=== PATIENT | male | born 1995 | race Caucasian/White ===

== ENCOUNTER 2018-03-05 19:27 | Inpatient (IN) ==
--- NOTE | 2018-03-05 19:53 | Emergency Department Note ---
Disposition Clinical Impression: Depression Qualifiers: Depression Type: unspecified Qualified Code(s): F32.9 - Major depressive disorder, single episode, unspecified Disposition: Still a Patient Condition: Good Referrals: NONE,PCP [Primary Care Provider] - Forms: ED Satisfaction Letter Psych HPI - General Chief Complaint: ED Psychiatric Symptoms Stated Complaint: "SI/Hearing Voices" Time Seen by Provider: 03/05/18 19:45 Source: patient Mode of arrival: ambulatory Limitations: no limitations Nursing Notes Reviewed: Yes Vital Signs Reviewed: Yes - History of Present Illness HPI Narrative: 22-year-old with schizoaffective disorder versus medications not working. He is hearing voices that are very loud and he wanted to try to get help before he deteriorates into started to hurt people. 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 Duration: constant History of similar episodes: Yes Improves with: none Worsens with: none Associated Psychiatric Symptoms: other Associated symptoms: Reports: denies other symptoms Traumatic symptoms: denies traumatic injury Treatments prior to arrival: none Self harm or harm to others: admits thoughts of harming others - Related Data Home Medications Medication Instructions Recorded Confirmed Levothyroxine [Synthroid] 50 mcg PO 0630 01/16/18 01/16/18 [place] Carbonate 300 mg PO BID 01/16/18 01/16/18 Paliperidone Palmitate [Invega 234 mg IM QMONTH 01/16/18 01/16/18 Sustenna] RisperiDONE [Risperdal] 0.5 mg PO BID 01/16/18 01/16/18 Previous Rx's Medication Instructions Recorded Ondansetron ODT [Zofran ODT] 4 mg SL Q6HR PRN #20 tab.rapdis 01/31/18 Allergies Allergy/AdvReac Type Severity Reaction Status Date / Time aripiprazole [From Abilify] AdvReac See Verified 04/03/17 17:15 Comments Bethanidine AdvReac See Verified 04/03/17 17:15 Comments divalproex sodium AdvReac See Verified 04/03/17 17:15 [From Depakote] Comments ziprasidone [From Geodon] AdvReac See Verified 04/03/17 17:15 Comments All systems ED: reviewed and negative except as stated. Constitutional: Denies: fever, chills, weakness, weight change Eyes: Denies: eye pain, eye discharge, vision change ENT ED: Denies: ear pain, throat pain, dental pain, hearing loss, epistaxis, congestion, dysphagia Cardiovascular: Denies: chest pain, palpitations, dyspnea on exertion, edema, syncope Respiratory: Denies: cough, dyspnea, wheezes, hemoptysis, stridor Gastrointestinal: Denies: abdominal pain, nausea, vomiting, diarrhea, constipation, hematemesis, melena, hematochezia Genitourinary: Denies: urgency, dysuria, frequency, hematuria Musculoskeletal: Denies: back pain, neck pain, arthralgia, myalgia Integumentary: Denies: rash, abrasion, lesions Neurological: Denies: headache, weakness, numbness, paresthesias, confusion, abnormal gait, vertigo Psychiatric: Reports: auditory hallucinations. Denies: anxiety, depression, suicidal thoughts, homicidal thoughts, visual hallucinations Endocrine: Denies: fatigue Hematological/Lymphatic: Denies: easy bleeding, easy bruising Allergic/Immunologic: Denies: facial swelling, urticaria Past Medical History - Past Medical History Medical history: Reports: thyroid disease, other Psychiatric history: Reports: anxiety, bipolar, depression, prior suicide attempt, schizophrenia, previous psychiatric hospitalization - Social History Smoking Status: Never smoker Smokeless Tobacco Status: No Alcohol use: Reports: none Drug use: Reports: none Physical Exam - General Limitations: no limitations General appearance: alert - Head Head exam: atraumatic, normocephalic, normal inspection - Eye Eye exam: Present: normal appearance, PERRL, EOMI - ENT ENT exam: normal exam, normal oropharynx, mucous membranes moist - Neck Neck exam: Present: normal inspection, full ROM, trachea midline - Chest Chest inspection: Present: normal inspection, symmetric chest wall rise - Respiratory Respiratory exam: Present: normal lung sounds bilaterally - Cardiovascular Cardiovascular exam: Present: regular rate, normal rhythm, normal heart sounds - Abdominal Exam Abdominal exam: Present: soft, Non-Tender. Absent: tenderness, distention, guarding, rebound, rigidity - Extremities Exam Extremities exam: Present: normal inspection, full ROM. Absent: tenderness, pedal edema - Expanded Lower Extremity Exam Neurovascular/Tendon exam: Present: normal capillary refill - Back Exam Back exam: Present: normal inspection, full ROM. Absent: tenderness - Neurological Exam Neurological exam: Present: alert, oriented X3 - Psychiatric Psychiatric exam: Present: normal affect, agitated - Skin Skin exam: Present: warm, dry, intact, normal color Course Vital Signs Temperature 98.5 F 03/05/18 19:30 Pulse Rate 95 03/05/18 19:30 Respiratory Rate 20 03/05/18 19:30 Blood Pressure 157/92 03/05/18 19:30 O2 Sat by Pulse Oximetry 94 03/05/18 19:30 Temperature 98.5 F 03/05/18 19:30 Pulse Rate 95 03/05/18 19:30 Respiratory Rate 20 03/05/18 19:30 Blood Pressure 157/92 03/05/18 19:30 O2 Sat by Pulse Oximetry 94 03/05/18 19:30 Oxygen Delivery Oxygen Delivery Room Air Psych - Lab Data Result diagrams: 03/05/18 19:44 03/05/18 19:44 Lab Results 03/05/18 03/05/18 03/05/18 Range/Units 19:44 19:44 19:49 WBC 6.4 (4.3-11.1) K/mcL RBC 4.87 (4.19-5.50) M/mcL Hgb 16.0 (12.9-16.9) g/dL Hct 43.4 (37.5-50.1) % MCV 89.1 (83.0-100.0) fL MCH 32.9 (28.0-33.3) pg MCHC 36.9 H (31.6-35.5) g/dL RDW 11.9 (11.5-14.5) % Plt Count 220 (140-400) K/mcL MPV 9.2 L (9.4-12.4) fL Immature Gran % 0.3 (0-4) % Seg Neutrophils % 56.5 % Lymphocytes % 28.1 % Monocytes % 7.8 % Eosinophils % 6.0 % Basophils % 1.3 % Neutrophils # 3.6 (1.6-8.9) K/mcL Lymphocytes # 1.8 (0.6-4.6) K/mcL Monocytes # 0.5 (0.0-1.3) K/mcL Eosinophils # 0.4 (0.0-0.6) K/mcL Basophils # 0.1 (0.0-0.2) K/mcL Sodium 140 (136-145) mEq/L Potassium 3.9 (3.5-5.1) mEq/L Chloride 108 H (98-107) mEq/L Carbon Dioxide 24 (23-29) mEq/L BUN 10 (6-20) mg/dL Creatinine 0.87 (0.70-1.30) mg/dL Est GFR ( Amer) > 60 (> 60) Est GFR (Non-Af Amer) > 60 (> 60) BUN/Creatinine Ratio 11 (6-26) Glucose 98 (70-105) mg/dL Calculated Osmolality 289 (280-300) Calcium 10.1 (8.6-10.3) mg/dL Urine Color Yellow (Yellow) Urine Clarity Clear (Clear) Urine pH 6.0 (5.0-8.0) pH Units Ur Specific [place] 1.022 (1.010-1.025) Urine Protein Negative (Neg-Trace) mg/dL Urine Glucose (UA) Normal (Normal) mg/dL Urine Ketones Negative (Negative) mg/dL Urine Blood Negative (Negative) Urine Nitrite Negative (Negative) Urine Bilirubin Negative (Negative) Urine Urobilinogen Normal (Normal) mg/dL Ur Leukocyte Esterase Negative (Negative) Salicylates < 2.5 L (15.0-30.0) mg/dL Urine Opiates Screen (Lnyjhr=109) ng/mL Acetaminophen < 10 L (10-20) mcg/mL Ur Barbiturates Screen (Jizpna=080) ng/mL Ur Phencyclidine Scrn (Cutoff=25) ng/mL Ur Amphetamines Screen (Krcmnn=7317) ng/mL U Benzodiazepines Scrn (Txzthv=425) ng/mL Urine Cocaine Screen (Cutoff= 300) ng/mL U Marijuana (THC) Screen (Cutoff = 50) ng/mL Ethyl Alcohol < 10 (Less than 10) mg/dL 03/05/18 Range/Units 19:49 WBC (4.3-11.1) K/mcL RBC (4.19-5.50) M/mcL Hgb (12.9-16.9) g/dL Hct (37.5-50.1) % MCV (83.0-100.0) fL MCH (28.0-33.3) pg MCHC (31.6-35.5) g/dL RDW (11.5-14.5) % Plt Count (140-400) K/mcL MPV (9.4-12.4) fL Immature Gran % (0-4) % Seg Neutrophils % % Lymphocytes % % Monocytes % % Eosinophils % % Basophils % % Neutrophils # (1.6-8.9) K/mcL Lymphocytes # (0.6-4.6) K/mcL Monocytes # (0.0-1.3) K/mcL Eosinophils # (0.0-0.6) K/mcL Basophils # (0.0-0.2) K/mcL Sodium (136-145) mEq/L Potassium (3.5-5.1) mEq/L Chloride (98-107) mEq/L Carbon Dioxide (23-29) mEq/L BUN (6-20) mg/dL Creatinine (0.70-1.30) mg/dL Est GFR ( Amer) (> 60) Est GFR (Non-Af Amer) (> 60) BUN/Creatinine Ratio (6-26) Glucose (70-105) mg/dL Calculated Osmolality (280-300) Calcium (8.6-10.3) mg/dL Urine Color (Yellow) Urine Clarity (Clear) Urine pH (5.0-8.0) pH Units Ur Specific [place] (1.010-1.025) Urine Protein (Neg-Trace) mg/dL Urine Glucose (UA) (Normal) mg/dL Urine Ketones (Negative) mg/dL Urine Blood (Negative) Urine Nitrite (Negative) Urine Bilirubin (Negative) Urine Urobilinogen (Normal) mg/dL Ur Leukocyte Esterase (Negative) Salicylates (15.0-30.0) mg/dL Urine Opiates Screen Negative (Lnuuzf=366) ng/mL Acetaminophen (10-20) mcg/mL Ur Barbiturates Screen Negative (Vhvpop=358) ng/mL Ur Phencyclidine Scrn Negative (Cutoff=25) ng/mL Ur Amphetamines Screen Negative (Tomuol=4892) ng/mL U Benzodiazepines Scrn Negative (Vssmet=840) ng/mL Urine Cocaine Screen Negative (Cutoff= 300) ng/mL U Marijuana (THC) Screen Negative (Cutoff = 50) ng/mL Ethyl Alcohol (Less than 10) mg/dL Psychiatric Medical Clearance - Medical Clearance Checklist Medical History: No Social History Section defined Current Vitals: Last Vital Signs Temp 98.5 F 03/05/18 19:30 Pulse 95 03/05/18 19:30 Resp 20 03/05/18 19:30 BP 157/92 03/05/18 19:30 Pulse Ox 94 03/05/18 19:30 Psychiatric Lab Panel: Drug Levels and Toxicity 03/05/18 03/05/18 19:44 19:49 Urine Opiates Screen Negative Acetaminophen < 10 L Ur Barbiturates Screen Negative Ur Phencyclidine Scrn Negative Ur Amphetamines Screen Negative U Benzodiazepines Scrn Negative Urine Cocaine Screen Negative U Marijuana (THC) Screen Negative Ethyl Alcohol < 10 Abnormal Labs: Abnormal lab results MCHC 36.9 g/dL (31.6-35.5) H 03/05/18 19:44 MPV 9.2 fL (9.4-12.4) L 03/05/18 19:44 Chloride 108 mEq/L (98-107) H 03/05/18 19:44 Salicylates < 2.5 mg/dL (15.0-30.0) L 03/05/18 19:44 Acetaminophen < 10 mcg/mL (10-20) L 03/05/18 19:44 Statement of Medical Clearance: I have evaluated the patient, reviewed diagnostic information, and certify that the patient's medical condition is sufficiently stable that transfer to the psychiatric unit does not pose a significant risk of deterioration. S.B.A.R. - S.B.A.R. Recommendation: Recommendation based on pending studies, treatments, or consults S.B.A.R. Report Given to: Dr. Keith Fisher
[2018-03-05 19:57] LABS: Basophils # 0.1 K/mcL (0.0-0.2); Basophils % 1.3 %; Eosinophils # 0.4 K/mcL (0.0-0.6); Hematocrit 43.4 % (37.5-50.1); Immature Granulocytes % 0.3 % (0-4); Lymphocytes # 1.8 K/mcL (0.6-4.6); Lymphocytes % 28.1 %; Mean Corpuscular HGB Conc 36.9 g/dL (31.6-35.5); Mean Corpuscular Hemoglobin 32.9 pg (28.0-33.3); Mean Corpuscular Volume 89.1 fL (83.0-100.0); Mean Platelet Volume 9.2 fL (9.4-12.4); Monocytes # 0.5 K/mcL (0.0-1.3); Monocytes % 7.8 %; Neutrophils # 3.6 K/mcL (1.6-8.9); Platelet Count 220 K/mcL (140-400); Red Blood Count 4.87 M/mcL (4.19-5.50); Red Cell Distribution Width 11.9 % (11.5-14.5); Segmented Neutrophils % 56.5 %
[2018-03-05 20:03] LABS: Bilirubin,Urine Negative (Negative); Blood,Urine Negative (Negative); Clarity,Urine Clear (Clear); Color,Urine Yellow (Yellow); Glucose,Urine (UA) Normal (Normal); Ketones,Urine Negative (Negative); Leukocyte Esterase,Urine Negative (Negative); Nitrite,Urine Negative (Negative); Protein,Urine Negative (Neg-Trace); Specific Gravity,Urine 1.022 (1.010-1.025); Urobilinogen,Urine Normal (Normal)
[2018-03-05 20:12] LABS: Amphetamine Screen,Urine Negative ng/mL (Cutoff=1000); Barbiturate Screen,Urine Negative ng/mL (Cutoff=200); Benzodiazepines Screen,Urine Negative ng/mL (Cutoff=200); Cannabinoid Screen,Urine Negative ng/mL (Cutoff = 50); Cocaine Screen,Urine Negative ng/mL (Cutoff= 300); Opiate Screen,Urine Negative ng/mL (Cutoff=300); Phencyclidine Screen,Urine Negative ng/mL (Cutoff=25)
[2018-03-05 20:25] LABS: Acetaminophen < 10 mcg/mL (10-20); BUN/Creatinine Ratio 11 (6-26); Blood Urea Nitrogen 10 mg/dL (6-20); Calcium 10.1 mg/dL (8.6-10.3); Carbon Dioxide 24 mEq/L (23-29); Chloride 108 mEq/L (98-107); Ethanol < 10 mg/dL (Less than 10); Glucose 98 mg/dL (70-105); Osmolality,Calculated 289 (280-300); Potassium 3.9 mEq/L (3.5-5.1); Salicylate < 2.5 mg/dL (15.0-30.0); Sodium 140 mEq/L (136-145); eGFR For African Americans > 60 (> 60); eGFR For Non-African Americans > 60 (> 60)
[2018-03-06] MEDS ORDERED: *HR* LORazepam 2 MG/ML VIAL IM ONE (00:04)
[2018-03-06] MEDS ORDERED: Haloperidol Lactate 5 MG/ML VIAL IM ONE (00:04)
[2018-03-06] MEDS ORDERED: MOM Conc 10 ML UD.LIQ PO PRN (01:32)
[2018-03-06] MEDS ORDERED: Ibuprofen 400 MG TABLET PO PRN (01:32)
[2018-03-06] MEDS ORDERED: *HR* LORazepam 2 MG/ML VIAL IM PRN (01:32)
[2018-03-06] MEDS ORDERED: Haloperidol Lactate 5 MG/ML VIAL IM PRN (01:32)
[2018-03-06] MEDS ORDERED: *HR* LORazepam 1 MG TABLET PO PRN (01:32)
--- NOTE | 2018-03-06 11:21 | Psychiatry History & Physical ---
Date of Encounter: 03/06/18 Time of Encounter: 10:45 History of Present Illness Patient Stated Chief Complaint: "Im suicidal and hearing voices" Medicare Admission Attestation: For traditional Medicare patients the provided hospital inpatient services are reasonable and necessary and in the case of services not specified as inpatient -only under 42 CFR 419.22 (n), that they are appropriately provided as inpatient services in accordance 42 CFR 412.3. For Critical Access Hospital the patient may reasonably be expected to be discharged or transferred to a hospital within 96 hours after admission to the Critical Access Hospital. Plans for Post Hospital Care: Transfer Psych Facility History of Present Illness: Mr. Flores is a 22 year old male, singlel. lives with mom and siblings, with a h/o schizophrenia, bipolar disorder, multiple inpatient hospitalizations including state hospitalization at [facility], denied h/o illicit drug use, self reported h/o violence, denied h/o incarceration, medical h/o celiac disease and IBS self presented to the ED on account of SI and coomand . Patient was admitted to after medical clearance for inpatient stabilization. He was medicated with IM Haldol 5mg Ativan 2mg and Benadryl 50mg at the ED with good effect. Patient slept through the night after his admission to the unit with no reported behavioral issues or incident. He was seen this morning in the office and was noted to a little restless and talkative. He stated he self admitted himself to the hospital because his thoughts were beginning to be foggy and did not want to get out of control. He is on Invega sustenna 234mg and his last shot was at the beginning of the month. Patient is unable to recall the exact date. He also was started on lithium a couple of months back. Patient denied ongoing stressors and recent illicit drug use. He is currently endorsing racing thoughts and intermittent command AH asking him to harm self and others. He rated his depression and anxiety 6/10. He takes Doxepin at bedtime and helps with sleep. Past Med Surg Social Fam HX - Past Medical History Medical history: thyroid disease, other - Past Psychiatric History Psychiatric history: Reports: anxiety, bipolar, schizophrenia, previous psychiatric hospitalization - Social History Smoking Status: Never smoker Smokeless Tobacco Status: No Alcohol use: none Drug use: none Medications & Allergies Levothyroxine [Synthroid] 50 mcg PO 0630 01/16/18 [History] [place] Carbonate 300 mg PO BID 01/16/18 [History] Paliperidone Palmitate [Invega Sustenna] 234 mg IM QMONTH 01/16/18 [History] Benztropine [Cogentin] 1 mg PO BID 03/05/18 [History] Doxepin [Sinequan] 25 mg PO HS 03/05/18 [History] risperiDONE [RisperDAL] 1 mg PO HS 03/05/18 [History] 3 Allergy/AdvReac Type Severity Reaction Status Date / Time aripiprazole [From Abilify] AdvReac See Verified 04/03/17 17:15 Comments Bethanidine AdvReac See Verified 04/03/17 17:15 Comments divalproex sodium AdvReac See Verified 04/03/17 17:15 [From Depakote] Comments ziprasidone [From Geodon] AdvReac See Verified 04/03/17 17:15 Comments Review of Systems Constitutional: Denies: fever, chills, weakness, weight change Eyes: Denies: eye pain, vision change Ears, Nose, Throat: Denies: ear pain, throat pain, dental pain, hearing loss, congestion Cardiovascular: Denies: chest pain, palpitations, dyspnea on exertion Respiratory: Denies: cough, dyspnea, wheezes Gastrointestinal: Denies: abdominal pain, nausea, vomiting, diarrhea, constipation Genitourinary male: Denies: urgency, dysuria, frequency, genital lesions Musculoskeletal: Denies: joint swelling, joint pain Integumentary: Denies: rash, lesions, pruritus Neurological: Denies: headache, weakness, numbness, memory loss Psychiatric: Reports: depression, anxiety, auditory hallucinations Endocrine: Denies: fatigue, heat or cold intolerance Hematologic/Lymphatic: Denies: easy bruising, lymphadenopathy Allergic/Immunologic: Denies: urticaria, itchy eyes Exam - HEENT Head exam IM: Present: atraumatic Eye exam IM: Present: EOMI, normal appearance, PERRL ENT exam IM: Present: normal exam - Neurological Neurological exam: Present: CN II-XII intact - Respiratory Respiratory exam IM: Present: CTAB - GI/Abdominal GI/Abdominal exam IM: Present: normal bowel sounds, soft. Absent: tenderness - Extremities Extremities exam IM: Present: full ROM - Skin Skin exam IM: Present: dry, warm - Constitutional Vitals: Temp Pulse Resp BP Pulse Ox 97.3 F L 77 19 118/81 94 03/06/18 09:00 03/06/18 09:00 03/06/18 09:00 03/06/18 09:00 03/05/18 19:30 General appearance: age & developmentally appropriate, well-groomed, well- nourished - Musculoskeletal Gait: normal Station: relaxed Strength & Tone: normal for patient - Psychiatric Patient Orientation: Yes Person, Yes Place, Yes Circumstance Level of alertness: Alert, Follows commands Behavior: restless, distractible Psychomotor activity: Increased Eye Contact: Maintains Eye Contact Mood Description: Depressed Affect description: full range Speech Volume: Normal Speech pattern: normal rate, normal rhythm, normal tone, fluent, spontaneous Language & Vocabulary: consistent with education Thought Process: Logical, Linear, Goal Oriented Thought Content: Yes Suicidal ideation Perceptual Disturbances: Yes Auditory hallucinations Attention Span Ability: Capable of Sustained Attention Patient Reliability: Reliable Historian Fund of knowledge: Yes average Intelligence Estimate: Average Judgment: Poor Insight: Minimal Results - Labs Labs: Laboratory Last Values WBC 6.4 K/mcL (4.3-11.1) 03/05/18 19:44 RBC 4.87 M/mcL (4.19-5.50) 03/05/18 19:44 Hgb 16.0 g/dL (12.9-16.9) 03/05/18 19:44 Hct 43.4 % (37.5-50.1) 03/05/18 19:44 MCV 89.1 fL (83.0-100.0) 03/05/18 19:44 MCH 32.9 pg (28.0-33.3) 03/05/18 19:44 MCHC 36.9 g/dL (31.6-35.5) H 03/05/18 19:44 RDW 11.9 % (11.5-14.5) 03/05/18 19:44 Plt Count 220 K/mcL (140-400) 03/05/18 19:44 MPV 9.2 fL (9.4-12.4) L 03/05/18 19:44 Immature Gran % 0.3 % (0-4) 03/05/18 19:44 Seg Neutrophils % 56.5 % 03/05/18 19:44 Lymphocytes % 28.1 % 03/05/18 19:44 Monocytes % 7.8 % 03/05/18 19:44 Eosinophils % 6.0 % 03/05/18 19:44 Basophils % 1.3 % 03/05/18 19:44 Neutrophils # 3.6 K/mcL (1.6-8.9) 03/05/18 19:44 Lymphocytes # 1.8 K/mcL (0.6-4.6) 03/05/18 19:44 Monocytes # 0.5 K/mcL (0.0-1.3) 03/05/18 19:44 Eosinophils # 0.4 K/mcL (0.0-0.6) 03/05/18 19:44 Basophils # 0.1 K/mcL (0.0-0.2) 03/05/18 19:44 Sodium 140 mEq/L (136-145) 03/05/18 19:44 Potassium 3.9 mEq/L (3.5-5.1) 03/05/18 19:44 Chloride 108 mEq/L (98-107) H 03/05/18 19:44 Carbon Dioxide 24 mEq/L (23-29) 03/05/18 19:44 BUN 10 mg/dL (6-20) 03/05/18 19:44 Creatinine 0.87 mg/dL (0.70-1.30) 03/05/18 19:44 Est GFR ( Amer) > 60 (> 60) 03/05/18 19:44 Est GFR (Non-Af Amer) > 60 (> 60) 03/05/18 19:44 BUN/Creatinine Ratio 11 (6-26) 03/05/18 19:44 Glucose 98 mg/dL (70-105) 03/05/18 19:44 Calculated Osmolality 289 (280-300) 03/05/18 19:44 Calcium 10.1 mg/dL (8.6-10.3) 03/05/18 19:44 Urine Color Yellow (Yellow) 03/05/18 19:49 Urine Clarity Clear (Clear) 03/05/18 19:49 Urine pH 6.0 pH Units (5.0-8.0) 03/05/18 19:49 Ur Specific [place] 1.022 (1.010-1.025) 03/05/18 19:49 Urine Protein Negative mg/dL (Neg-Trace) 03/05/18 19:49 Urine Glucose (UA) Normal mg/dL (Normal) 18 19:49 Urine Ketones Negative mg/dL (Negative) 03/05/18 19:49 Urine Blood Negative (Negative) 18 19:49 Urine Nitrite Negative (Negative) 18 19:49 Urine Bilirubin Negative (Negative) 03/05/18 19:49 Urine Urobilinogen Normal mg/dL (Normal) 03/05/18 19:49 Ur Leukocyte Esterase Negative (Negative) 03/05/18 19:49 Salicylates < 2.5 mg/dL (15.0-30.0) L 03/05/18 19:44 Urine Opiates Screen Negative ng/mL (Wumbxu=000) 03/05/18 19:49 Acetaminophen < 10 mcg/mL (10-20) L 03/05/18 19:44 Ur Barbiturates Screen Negative ng/mL (Ocmjbh=463) 03/05/18 19:49 Ur Phencyclidine Scrn Negative ng/mL (Cutoff=25) 03/05/18 19:49 Ur Amphetamines Screen Negative ng/mL (Velill=9524) 03/05/18 19:49 U Benzodiazepines Scrn Negative ng/mL (Qszlra=716) 03/05/18 19:49 Embden 0.3 mEq/L (0.6-1.2) L 03/05/18 19:44 Urine Cocaine Screen Negative ng/mL (Cutoff= 300) 03/05/18 19:49 U Marijuana (THC) Screen Negative ng/mL (Cutoff = 50) 03/05/18 19:49 Ethyl Alcohol < 10 mg/dL (Less than 10) 03/05/18 19:44 Assessment and Plan (1) Schizophrenia Current visit: Yes Status: Acute Plan: Admit inpatient for safety and stabilization, Close observation, Suicide Precautions per unit protocol, Encourage participation in unit milieu, Group Therapy, Monitor sleep, Monitor appetite Qualifiers: Schizophrenia type: undifferentiated schizophrenia Qualified Code(s): F20.3 - Undifferentiated schizophrenia (2) Bipolar 1 disorder Current visit: Yes Status: Acute Plan: Admit inpatient for safety and stabilization, Close observation, Encourage participation in unit milieu, Family/Supportive other meeting Risks , benefits, side effects, alternatives discussed w/pt: Yes Patient agreeable to treatment: Yes
[2018-03-06 12:42] LABS: Albumin 4.9 g/dL (3.5-5.7); Albumin/Globulin Ratio 2.2 (1.1-2.2); Bilirubin,Direct 0.3 mg/dL (0.0-0.2); Bilirubin,Indirect 1.4 mg/dL (0.0-1.2); Bilirubin,Total 1.7 mg/dL (0.3-1.0); Globulin 2.2 g/dL (2.4-3.5); Total Protein 7.1 g/dL (6.4-8.9)
[2018-03-06] MEDS: Lithium Carbonate 300 MG CAPSULE PO SCH ×2 (15:33→21:17)
[2018-03-06] MEDS ORDERED: risperiDONE 1 MG TABLET PO SCH (21:00)
[2018-03-06] MEDS: hydrOXYzine pamoate 25 MG CAPSULE PO PRN (22:57)
[2018-03-06] MEDS: traZODone 50 MG TABLET PO PRN (23:36)
[2018-03-07] MEDS: Lithium Carbonate 300 MG CAPSULE PO SCH ×3 (08:53→21:21)
--- NOTE | 2018-03-07 12:42 | Psychiatry Progress Note ---
Date of Encounter: 03/07/18 Time of Encounter: 10:30 Subjective Interval history: Identifying Data: Mr. Flores is a 22 year old male, singlel. lives with mom and siblings, with a h/o schizophrenia, bipolar disorder, multiple inpatient hospitalizations including state hospitalization at [facility], denied h/o illicit drug use, self reported h/o violence, denied h/o incarceration, medical h/o celiac disease and IBS self presented to the ED on account of SI and command AH. Patient was admitted to after medical clearance for inpatient stabilization. Interval Hx: There were no reported behavioral issues or incident overnight. Patient discussed on rounds by a multidisciplinary treatment team. He was seen this morning in the office. Patient is still restless and talkative with sightly pressures speech. He is still endorsing intermittent command AH most recent early this morning asking to wake up. Review of hepatic panel showed elevated AST:68, ALT: 85 and Total Bilirubin. I plan to switch Respidal with Invega p.o. He is compliant with his medications and denied any side effects. He reported difficulty sleeping last night because he did not receive his doxepin and finally went to sleep after taking both Trazodone and Vistaril. On review of symptoms, patient denied other mood and psychotic symptoms including VH/SI/HI Review of Systems Constitutional: Denies: fever, chills, weakness, weight change Eyes: Denies: eye pain, vision change Ears, Nose, Throat: Denies: ear pain, throat pain, dental pain, hearing loss, congestion Cardiovascular: Denies: chest pain, palpitations, dyspnea on exertion Respiratory: Denies: cough, dyspnea, wheezes Gastrointestinal: Denies: abdominal pain, nausea, vomiting, diarrhea, constipation Musculoskeletal: Denies: joint swelling, joint pain Neurological: Denies: headache, weakness, numbness, memory loss Psychiatric: Reports: depression, anxiety, auditory hallucinations Results - Vital Signs Vital Signs: Temp Pulse Resp BP Pulse Ox 97.7 F 84 16 123/79 94 03/06/18 20:19 03/07/18 08:26 03/07/18 08:26 03/07/18 08:26 03/05/18 19:30 - Labs Labs: Laboratory Results - last 24 hr 03/06/18 11:39 Total Bilirubin 1.7 H Direct Bilirubin 0.3 H Indirect Bilirubin 1.4 H AST 68 H ALT 85 H Alkaline Phosphatase 82 Serum Total Protein 7.1 Albumin 4.9 Globulin 2.2 L Albumin/Globulin Ratio 2.2 Assessment and Plan (1) Schizophrenia Current visit: Yes Status: Acute Qualifiers: Schizophrenia type: undifferentiated schizophrenia Qualified Code(s): F20.3 - Undifferentiated schizophrenia (2) Bipolar 1 disorder Current visit: Yes Status: Acute Risks, benefits, side effects, alternatives discussed w/pt: Yes Patient agreeable to treatment: Yes (3) Anxiety Current visit: Yes Status: Acute Plan: Continue hospitalization, Group Therapy Consult Discharge Plan - Plan Referrals: NONE,PCP [Primary Care Provider] - Psychiatry Exam - Constitutional Vitals: Temp Pulse Resp BP Pulse Ox 97.7 F 84 16 123/79 94 03/06/18 20:19 03/07/18 08:26 03/07/18 08:26 03/07/18 08:26 03/05/18 19:30 General appearance: age & developmentally appropriate, well-groomed, well- nourished - Musculoskeletal Gait: normal Station: relaxed Strength & Tone: normal for patient - Psychiatric Patient Orientation: Yes Person, Yes Time, Yes Place, Yes Circumstance Level of alertness: Alert Behavior: cooperative, restless Psychomotor activity: Normal Eye Contact: Maintains Eye Contact Mood Description: Elevated Affect description: congruent with mood Speech Volume: Normal Speech pattern: pressured Language & Vocabulary: consistent with education Thought Process: Linear, Goal Oriented Thought Content: No Suicidal ideation, No Homicidal ideation, No Overt delusions Perceptual Disturbances: Yes Auditory hallucinations Attention Span Ability: Unable to Focus Memory Description: Grossly Intact Patient Reliability: Reliable Historian Fund of knowledge: Yes below average Intelligence Estimate: Below Average Judgment: Poor Insight: Minimal
[2018-03-07] MEDS: hydrOXYzine pamoate 25 MG CAPSULE PO PRN (21:21)
[2018-03-08] MEDS: Lithium Carbonate 300 MG CAPSULE PO SCH ×3 (08:57→21:33)
--- NOTE | 2018-03-08 16:26 | Psychiatry Progress Note ---
Date of Encounter: 03/08/18 Time of Encounter: 16:00 Subjective Interval history: The patient is a 22-year-old white male. The patient has had a long history of schizophrenia. His hospitalization was urged precipitated by a significant change in mood and thinking also auditory hallucinations today in the morning he got in [place] 3 mg and he felt much better. The patient has a history of psychiatric hospitalizations at [facility], [facility] and other facilities. Today he feels much better and his mood is better. He may have had auditory hallucinations before the INVega but reports none since and he says that he feels "awesome". The patient recognizes that he is illness and recognizes the INVega is the highest dose but he had breakthrough symptoms. The patient is aware of the elevation of liver enzymes he reports that a workup for hepatitis was negative before but cannot tell me the details he believes that he is doing better on lithium and he has one provider in [place] whom he trusts and wants to see for follow-up. His provider gives the injection and is aware of his previous hospitalizations and complicated history. The patient tells me that his brother is doing better but his brother has schizophrenia and had been earlier onset of psychiatric illness before that. He plans to go to one [employer]. It is free time he goes to collect [employer] plays games and he denies the abuse of alcohol or drugs. The patient also showed me thrush on his tongue. This occurred after antibiotic treatment for bronchitis he also showed me some Amrita like areas over the left ear. He requests nystatin for the oral thrush and an ointment for the topical thrush. He reports that he was seen in [facility] and was told that he had an enlarged liver or perhaps an enlarged spleen because he pointed to the left hypogastric area patient like to continue on oral INVega. Discussion of an INVega Trinza and wasincluded Review of Systems Ears, Nose, Throat: Reports: ear pain, other Integumentary: Reports: lesions Psychiatric: Reports: depression, anxiety, auditory hallucinations, irritability Results - Vital Signs Vital Signs: Temp Pulse Resp BP Pulse Ox 97.7 F 69 20 118/73 94 03/08/18 11:00 03/08/18 11:00 03/08/18 11:00 03/08/18 11:03/05/18 19:30 Assessment and Plan (1) Liver function test abnormality Current visit: Yes Status: Acute Plan: Continue hospitalization, Close observation, Group Therapy Risks, benefits, side effects, alternatives discussed w/pt: Yes Patient agreeable to treatment: Yes (2) Amrita albicans infection Current visit: Yes Status: Acute Plan: Continue hospitalization, Close observation, Encourage participation in unit milieu Risks, benefits, side effects, alternatives discussed w/pt: Yes Patient agreeable to treatment: Yes (3) Anxiety Current visit: Yes Status: Acute Plan: Continue hospitalization, Close observation, Suicide Precautions per unit protocol, Monitor appetite Risks, benefits, side effects, alternatives discussed w/pt: Yes Patient agreeable to treatment: Yes (4) Schizophrenia Current visit: Yes Status: Acute Plan: Continue hospitalization, Encourage participation in unit milieu, Group Therapy Risks, benefits, side effects, alternatives discussed w/pt: Yes Patient agreeable to treatment: Yes Qualifiers: Schizophrenia type: undifferentiated schizophrenia Qualified Code(s): F20.3 - Undifferentiated schizophrenia Consult Discharge Plan - Plan Referrals: NONE,PCP [Primary Care Provider] - Psychiatry Exam - Constitutional Vitals: Temp Pulse Resp BP Pulse Ox 97.7 F 69 20 118/73 94 03/08/18 11:00 03/08/18 11:00 03/08/18 11:00 03/08/18 11:00 03/05/18 19:30 General appearance: age & developmentally appropriate, well-groomed, well- nourished - Musculoskeletal Gait: normal Station: slouched Strength & Tone: normal for patient - Psychiatric Patient Orientation: Yes Person, Yes Time, Yes Place Level of alertness: Alert Behavior: cooperative, impulsive Psychomotor activity: Abnormal movements Eye Contact: Minimal Contact Mood Description: Anxious Affect description: constricted Speech Volume: Loud Speech pattern: normal rate Language & Vocabulary: limited Thought Process: Intact, Goal Oriented Thought Content: Yes Ideas of reference Perceptual Disturbances: Yes Auditory hallucinations Attention Span Ability: Capable of Focused Attention Memory Description: Grossly Intact Patient Reliability: Questionable Historian Intelligence Estimate: Average Judgment: Limited Insight: Minimal
[2018-03-08] MEDS: Nystatin SUSP 5 ML UD.LIQ PO SCH ×2 (16:54→21:34)
[2018-03-08] MEDS: Nystatin OINT 15 GM TUBE TP SCH ×2 (17:46→21:38)
[2018-03-08] MEDS: Mag Hydrox/Al Hydrox/Simeth 30 ML UDC PO PRN (23:04)
[2018-03-09 08:49] LABS: Albumin 4.5 g/dL (3.5-5.7); Albumin/Globulin Ratio 1.8 (1.1-2.2); Bilirubin,Direct 0.2 mg/dL (0.0-0.2); Bilirubin,Indirect 1.2 mg/dL (0.0-1.2); Bilirubin,Total 1.4 mg/dL (0.3-1.0); Globulin 2.5 g/dL (2.4-3.5)
[2018-03-09] MEDS: Lithium Carbonate 300 MG CAPSULE PO SCH ×3 (09:15→20:11)
[2018-03-09] MEDS: Nystatin SUSP 5 ML UD.LIQ PO SCH ×4 (09:15→20:14)
[2018-03-09] MEDS: Nystatin OINT 15 GM TUBE TP SCH ×4 (09:17→20:10)
[2018-03-09] MEDS: Ketoconazole Shampoo 120 ML BOTTLE TP SCH ×2 (09:17→18:34)
[2018-03-09 09:41] LABS: Hepatitis B Surface Antigen Nonreactive (Nonreactive)
--- NOTE | 2018-03-09 14:31 | Psychiatry Progress Note ---
Date of Encounter: 03/09/18 Time of Encounter: 14:15 Subjective Interval history: The patient is a 22-year-old white male. He returns to see me. The patient requests to be discharged he feels that he is doing better and reports no significant disturbances from hallucinations or delusions. The patient denied problems. He plans to follow up in [place] he notes that in [place] is only given once a month and cannot be given earlier due to insurance regulations. He had a lithium drawn this morning and that is still pending but the liver enzymes remain elevated. This is consistent with fatty liver disease and hepatitis B antibody was negative. She and is aware of the fatty liver condition and may seek treatment. Brisa, osorio all shampoo was requested for his scalp condition. The patient reports improvement in [place] but some throat irritation Review of Systems Ears, Nose, Throat: Reports: throat pain Gastrointestinal: Reports: other Psychiatric: Reports: depression, anxiety, auditory hallucinations Results - Vital Signs Vital Signs: Temp Pulse Resp BP Pulse Ox 98.2 F 71 16 109/73 94 03/08/18 20:26 03/09/18 09:00 03/09/18 09:00 03/09/18 09:00 03/05/18 19:30 - Labs Labs: Laboratory Results - last 24 hr 03/09/18 03/09/18 08:16 08:16 Total Bilirubin 1.4 H Direct Bilirubin 0.2 Indirect Bilirubin 1.2 AST 62 H ALT 85 H Alkaline Phosphatase 67 Serum Total Protein 7.0 Albumin 4.5 Globulin 2.5 Albumin/Globulin Ratio 1.8 Hep Bs Antigen Nonreactive Assessment and Plan (1) Liver function test abnormality Current visit: Yes Status: Acute Risks, benefits, side effects, alternatives discussed w/pt: Yes Patient agreeable to treatment: Yes (2) Amrita albicans infection Current visit: Yes Status: Acute Risks, benefits, side effects, alternatives discussed w/pt: Yes Patient agreeable to treatment: Yes (3) Anxiety Current visit: Yes Status: Acute Risks, benefits, side effects, alternatives discussed w/pt: Yes Patient agreeable to treatment: Yes (4) Schizophrenia Current visit: Yes Status: Acute Risks, benefits, side effects, alternatives discussed w/pt: Yes Patient agreeable to treatment: Yes Qualifiers: Schizophrenia type: undifferentiated schizophrenia Qualified Code(s): F20.3 - Undifferentiated schizophrenia Consult Discharge Plan - Plan Referrals: NONE,PCP [Primary Care Provider] - Psychiatry Exam - Constitutional Vitals: Temp Pulse Resp BP Pulse Ox 98.2 F 71 16 109/73 94 03/08/18 20:26 03/09/18 09:00 03/09/18 09:00 03/09/18 09:00 03/05/18 19:30 General appearance: age & developmentally appropriate, well-groomed, obese - Musculoskeletal Gait: normal Station: other Strength & Tone: normal for patient - Psychiatric Patient Orientation: Yes Person, Yes Time, Yes Place Level of alertness: Alert Behavior: cooperative Psychomotor activity: Normal Eye Contact: Maintains Eye Contact Mood Description: Euthymic/stable Affect description: full range Speech Volume: Loud Speech pattern: normal rate Language & Vocabulary: consistent with education Thought Process: Intact, Logical, Linear Thought Content: Yes Intact Perceptual Disturbances: Yes Auditory hallucinations Attention Span Ability: Capable of Focused Attention Memory Description: Grossly Intact Patient Reliability: Reliable Historian Fund of knowledge: Yes average Intelligence Estimate: Average Judgment: Limited Insight: Minimal
[2018-03-09] MEDS: Mag Hydrox/Al Hydrox/Simeth 30 ML UDC PO PRN (20:54)
[2018-03-10] MEDS: traZODone 50 MG TABLET PO PRN (00:09)
[2018-03-10 04:11] LABS: Hepatitis A Antibody IgM Nonreactive (Nonreactive); Hepatitis B Core IgM Nonreactive (Nonreactive); Hepatitis C Virus Antibody Nonreactive (Nonreactive)
[2018-03-10 09:06] VITALS: BP 118/73
[2018-03-10] MEDS: Nystatin OINT 15 GM TUBE TP SCH ×2 (09:12→13:48)
[2018-03-10] MEDS: Nystatin SUSP 5 ML UD.LIQ PO SCH ×2 (09:12→13:48)
[2018-03-10] MEDS: Lithium Carbonate 300 MG CAPSULE PO SCH ×2 (09:12→14:13)
[2018-03-10] MEDS: Ketoconazole Shampoo 120 ML BOTTLE TP SCH (09:14)
--- NOTE | 2018-03-10 11:02 | Discharge Summary ---
Date of Encounter: 03/10/18 Time of Encounter: 11:00 Diagnosis - Discharge Diagnosis (1) Liver function test abnormality Status: Chronic (2) Amrita albicans infection Status: Chronic (3) Anxiety Priority: Secondary Status: Acute (4) Schizophrenia Priority: Primary Status: Acute Qualifiers: Schizophrenia type: undifferentiated schizophrenia Qualified Code(s): F20.3 - Undifferentiated schizophrenia Medications - Discharge Medications Prescriptions: Doxepin [Sinequan] 50 mg PO HS 30 Days #30 capsule Paliperidone [Invega] 3 mg PO DAILY 30 Days #30 tab.er.[id number] Levothyroxine [Synthroid] 50 mcg PO 0630 01/16/18 [History] Paliperidone Palmitate [Invega Sustenna] 234 mg IM QMONTH 01/16/18 [History] Benztropine [Cogentin] 1 mg PO BID 03/05/18 [History] Doxepin [Sinequan] 50 mg PO HS 30 Days #30 capsule 03/10/18 [Rx] Ketoconazole Shampoo [Nizoral Shampoo] 1 appl TP DAILY bottle 03/10/18 [Rx] Mescal Carbonate 300 mg PO TID capsule 03/10/18 [Rx] Nystatin OINT [Mycostatin] 1 appl TP QID 14 Days #14 tube 03/10/18 [Rx] Paliperidone [Invega] 3 mg PO DAILY 30 Days #30 tab.er.24 03/10/18 [Rx] 3 Allergy/AdvReac Type Severity Reaction Status Date / Time aripiprazole [From Abilify] AdvReac See Verified 04/03/17 17:15 Comments Bethanidine AdvReac See Verified 04/03/17 17:15 Comments divalproex sodium AdvReac See Verified 04/03/17 17:15 [From Depakote] Comments ziprasidone [From Geodon] AdvReac See Verified 04/03/17 17:15 Comments Results Procedures and tests throughout hospitalization: Completed Lab Orders Category Date Time Status Hepatic Panel Routine Lab 03/06/18 11:39 Completed Hepatic Panel Routine Lab 03/09/18 08:16 Completed Hepatitis Prof.(Routine A,B,C) Routine Lab 03/08/18 08:00 Completed Mescal Routine Lab 03/09/18 08:16 Completed Provider Date of admission: 03/05/18 23:49 Primary care physician: PCP NONE Discharging clinician: Armando Foster Psychiatry Exam - Constitutional Vitals: Temp Pulse Resp BP Pulse Ox 98.6 F 72 18 118/73 94 03/09/18 20:56 03/10/18 09:00 03/10/18 09:00 03/10/18 09:00 03/05/18 19:30 General appearance: age & developmentally appropriate, well-groomed, well- nourished - Musculoskeletal Gait: normal Station: relaxed Strength & Tone: normal for patient - Psychiatric Patient Orientation: Yes Person, Yes Time, Yes Place Level of alertness: Alert Behavior: calm, cooperative Psychomotor activity: Normal Eye Contact: Minimal Contact Mood Description: Anxious Affect description: congruent with mood, constricted Speech Volume: Normal Speech pattern: normal rate, normal rhythm, normal tone, fluent, spontaneous Language & Vocabulary: consistent with education Thought Process: Linear, Goal Oriented Thought Content: No Suicidal ideation, No Homicidal ideation, No Overt delusions Perceptual Disturbances: No Auditory hallucinations, No Visual hallucinations Attention Span Ability: Capable of Focused Attention Memory Description: Grossly Intact Patient Reliability: Reliable Historian Fund of knowledge: Yes abstraction ability, Yes aware of current events Intelligence Estimate: Average Judgment: Fair Insight: Partial Hospital Course Hospital course: Mr. Flores is a 22 year old male He was admitted on March 06. At the time the patient had developed significant agitation and hostility. He had an increase in auditory hallucinations. The patient had been taking paliperidone each month. He was also on oral medicines including oral risperidone and lithium for adjunctive therapy. He patient may have been nonadherent during the period of time to the hospitalization. The patient's medicines were switched from Risperdal to paliperidone. The lithium level was checked and was 0.3 after admission. The lithium was adjusted up to 300 mg 3 times a day. Prior to discharge the lithium level was 0.4 but had not achieved steady state by this. Time. Nonetheless on March 08 the patient was taking the in vague in the morning and reported he went to sleep and the voices gone. He felt his mood improve and felt much better. The patient did not have significant return of auditory hallucinations. He notes that they tend to come during a period of stress. He was able to identify self-help interests and activities. The patient prefers to receive his injection through [facility] and [facility] a [facility] outlet for case management. His mother was informed of the patient's progress. The patient had an adequate supply of medicines at home. However he asked for increased doxepin for sleep. The dose was increased from 25 mg to 50 mg daily at bedtime. The patient was to remain on paliperidone 3 mg by mouth every morning. The patient also was diagnosed with candidiasis. He had daily consult shampoo, nystatin cream and a nystatin solution to treat Amrita infection. Nystatin swish and swallow was prescribed at the time of discharge. The patient had elevations in liver enzymes. Hepatitis B antibody was negative. There is no history of hepatitis A and no significant risk factors for hepatitis C. The patient provided additional history to suggest that he had a nonfatty liver disease. He does not have a primary care physician but will seek a new PCP and was told to discuss this. The patient was educated on the side effects of his medications and the need for careful monitoring and follow-up - Time Spent with Patient Total time spent providing and/or coordinating discharge services: Less than 30 minutes Assessment and Plan - Patient/Caregiver Discharge Instructions Activity: resume usual activities as tolerated Diet: regular diet Additional Instructions: . - Follow up Plan Follow up with: [facility] [Outside] (The above appointment is with Mary Jane Torre for outpatient mental health assessment and medication management services. The fax number for this office is [phone].) [facility] [Outside] - 03/11/18 10:30 am (The above appointment is with Gwendolyn Londono, counselor at [facility]. Your first appointment will be very thorough and the total appointment time will take between two and three hours. You will be meeting with a counselor and a nurse, and developing a treatment plan. Please arrive one hour before your scheduled appointment to complete paperwork. You will receive follow- up appointments for on-going services, which could include community support, mental health and substance abuse counseling, groups/partial hospitalization programming, medication assisted treatment, and psychiatric medication management. Please bring the following with you to your first visit to the clinic: 1) proof of household income (two consecutive pay stubs, social security award letter, bank statement, statement letter from [facility], child support statement, IRS 1040 or W2 form, or a statement from the person who financially supports you stating they help provide for your basic needs), 2) proof of residency (drivers license, a piece of mail showing your address, a statement from person you live with verifying you live at their address), 3) your social security card, 4) photo ID, and 5) your insurance card (if you have commercial insurance you must call to obtain a prior authorization number before you arrive to your first appointment). If you do not bring these items, you will not be seen.) Functional capacity at discharge: independent ambulation Overall status at discharge: Stable Disposition: Home, Self-Care Quality - Multiple Antipsychotics Patient discharged on 2 or more antipsychotic medications: No Procedures - Procedures Procedures: Medication Management, Crisis Stabilization, Supportive Therapy, Group Therapy, Psychoeducational Therapy
== END 2018-03-10 14:00 | disposition home or self-care (01) | DRG 750 ==
LOC: EMEROO 19:27 → SUATTDRO 23:49 → 1ANU 23:49
PROVIDERS: ADMIT General Practice; ATTEND Psychiatry & Neurology Forensic Psychiatry